=== PATIENT | female | born 1980 | race Caucasian/White ===

== ENCOUNTER 2022-05-15 17:06 | Emergency (ER) | payer MEDICAID ==
[~2022-05-15] VITALS: Ht 170.2 cm; Wt 87.0 kg
[2022-05-15 17:10] VITALS: BP 136/85
[2022-05-15] MEDS ORDERED: BACITRACIN ZINC OINT UDPKT TOP ONE (21:00)
[2022-05-15] MEDS ORDERED: TETANUS, DIPHTHERIA, PERTUSSIS VAC/PF 0.5ML (>10YR OLD) IM ONE (21:00)
[2022-05-15] MEDS ORDERED: NAPR-681 MT (21:47)
[2022-05-15] MEDS ORDERED: AMOX1TAB16 MT (21:47)
== END 2022-05-15 22:04 | disposition home or self-care (01) ==
LOC: ER 17:06
DX: S51.851A Open bite of right forearm, initial encounter (principal); W54.0XXA Bitten by dog, initial encounter; Y93.89 Activity, other specified; Y92.89 Other specified places as the place of occurrence of the external cause; Y99.8 Other external cause status
CPT/HCPCS: 73090; 73130; 90471; 90715; 99284; Z7610

== ENCOUNTER 2023-06-06 03:31 | Emergency (ER) | payer MEDICAID ==
[~2023-06-06] VITALS: Ht 170.2 cm; Wt 94.0 kg
[~2023-06-06 03:31] MED LIST: AMOX1TAB16 MT; NAPR-681 MT
[2023-06-06 03:49] VITALS: O2SAT 98
[2023-06-06] MEDS: KETOROLAC 15MG/ML VIAL IM ONE (07:00)
[2023-06-06 11:53] VITALS: BP 119/78; PULSE 88; RESP 18; TEMP 98.2
== END 2023-06-06 13:18 | disposition home or self-care (01) ==
LOC: ER 03:31
DX: M79.671 Pain in right foot (principal)
CPT/HCPCS: 99283; 73630; 96372; J1885